=== PATIENT | female | born 1995 | race Two or more races ===

== ENCOUNTER 2023-03-01 07:43 | Inpatient (IN) | payer OTHER ==
[~2023-03-01] VITALS: Ht 152.4 cm; Wt 99.8 kg
[2023-03-01 09:24] LABS: HEMATOCRIT 33.5 % (36.0-45.00); HEMOGLOBIN 11.7 g/dL (12.0-15.00); MEAN CELL VOLUME 92.1 fL (80.00-100.00); MEAN CORPUSCULAR HEMOGLOBIN 32.1 pg (27.00-32.0); MEAN CORPUSCULAR HGB CONC 34.9 g/dl (32.0-36.0); PLATELET COUNT 159 K/uL (150-450); RED BLOOD COUNT 3.63 M/uL (4.00-6.00); RED CELL DISTRIBUTION WIDTH 14.7 % (11.5-14.5)
[2023-03-01 09:51] LABS: INR < 0.93; PARTIAL THROMBOPLASTIN TIME 27.6 SECONDS (22.0-34.0); PROTHROMBIN TIME 9.8 SECONDS (9.0-11.5)
[2023-03-01 09:56] LABS: ALBUMIN 2.8 gm/dL (3.4-5.0); BILIRUBIN TOTAL 0.74 mg/dL (0.3-1.2); CALCIUM 9.2 mg/dL (8.5-10.1); CREATININE SERUM 0.49 mg/dL (0.55-1.02); GFR 152.66; GLOBULINA 3.6 G/DL (2.4-3.5); POTASSIUM 4.15 mEq/L (3.5-5.1); TOTAL PROTEIN 6.4 gm/dL (6.4-8.2)
[2023-03-01] MEDS ORDERED: IRON325 MG PO (11:21)
[2023-03-01] MEDS ORDERED: PRENATABS RX T1 EACH PO (11:21)
[2023-03-02 06:53] LABS: HEMATOCRIT 29.7 % (36.0-45.00); HEMOGLOBIN 10.3 g/dL (12.0-15.00); MEAN CELL VOLUME 92.4 fL (80.00-100.00); MEAN CORPUSCULAR HGB CONC 34.6 g/dl (32.0-36.0); PLATELET COUNT 141 K/uL (150-450); RED BLOOD COUNT 3.22 M/uL (4.00-6.00)
== END 2023-03-03 15:35 | disposition home or self-care (01) | DRG 785 ==
LOC: OB/GYN 07:43 → LDR 07:43 → OB/GYN 13:24
PROVIDERS: ADMIT Obstetrics & Gynecology; ATTEND Obstetrics & Gynecology
PROC: 0UB70ZZ Excision of Bilateral Fallopian Tubes, Open Approach (ICD-10-PCS; 2023-03-01)
PROC: 4A1HXCZ Monitoring of Products of Conception, Cardiac Rate, External Approach (ICD-10-PCS; 2023-03-01)
PROC: 10D00Z1 Extraction of Products of Conception, Low, Open Approach (ICD-10-PCS; principal; 2023-03-01 12:00)
DX: O34.211 Maternal care for low transverse scar from previous cesarean delivery (principal); Z3A.38 38 weeks gestation of pregnancy; Z30.2 Encounter for sterilization; Z20.822 Contact with and (suspected) exposure to COVID-19; Z37.0 Single live birth

== ENCOUNTER 2024-01-25 07:10 | Emergency (ER) | payer OTHER ==
[~2024-01-25] VITALS: Ht 157.5 cm; Wt 86.2 kg
[~2024-01-25 07:10] MED LIST: IRON325 MG PO; PRENATABS RX T1 EACH PO
[2024-01-25] MEDS ORDERED: PEPCID AC20 MG PO (08:43)
[2024-01-25] MEDS ORDERED: MEDROLPACK PO (08:43)
[2024-01-25] MEDS ORDERED: ZITHROMAX TRI-500 MG PO (08:43)
[2024-01-25] MEDS ORDERED: KETOROLAC TROMETHAMINE 60 MG VIAL IM ONE (08:45)
[2024-01-25] MEDS ORDERED: METHYLPREDNISOLONE SOD SUCC 40 MG VIAL IM ONE (08:45)
[2024-01-25] MEDS ORDERED: CEFTRIAXONE SODIUM 1,000 MG VIAL IM ONE (08:45)
== END 2024-01-25 09:12 | disposition home or self-care (01) ==
LOC: ER 07:12
DX: J02.0 Streptococcal pharyngitis (principal)